=== PATIENT | male | born 1955 | race Caucasian/White ===

== ENCOUNTER 2019-08-24 12:30 | Outpatient (RCR) | payer OTHER, SELFPAY ==
[2019-08-24 13:14] LABS: Troponin I < 0.012 ng/mL (0.000-0.034)
== END 2019-11-22 23:59 | disposition home or self-care (01) ==
LOC: ANHLAB 12:30
PROVIDERS: PCP Family Medicine; Visit Provider Specialist
DX: I25.10 Atherosclerotic heart disease of native coronary artery without angina pectoris (principal); Z95.5 Presence of coronary angioplasty implant and graft
CPT/HCPCS: 36415; 84484

== ENCOUNTER 2019-09-04 13:11 | Emergency (ER) | payer OTHER, SELFPAY ==
--- NOTE | ~2019-09-04 | XR_ITS ---
EXAMINATION: XR chest 2V DATE: 09/04/2019 13:44 INDICATION: Central chest pain. Nausea. TECHNIQUE: PA and lateral views of the chest were obtained. COMPARISON: Chest radiograph and CT dated 05/12/18 FINDINGS: The lungs remain clear with no focal airspace opacities, pulmonary edema, pleural effusion or pneumot horax. The cardiomediastinal silhouette is normal. Moderate thoracic spondylosis. IMPRESSION: 1. No acute cardiopulmonary disease. Reviewed, dictated and finalized at location A.
[2019-09-04 13:15] VITALS: BP 165/84; PULSE 92; RESP 18; TEMP 36.8; O2SAT 97
[2019-09-04 13:19] VITALS: PULSE 92
[2019-09-04 13:20] VITALS: O2SAT 98
--- NOTE | 2019-09-04 13:20 | ECG_ITS ---
Measurements Intervals [place] Rate: 89 P: 48 SC: 132 QRS: 56 QRSD: 102 T: 45 QT: 363 QTc: 442 Interpretive Statements SINUS RHYTHM BASELINE ARTIFACT- I, II, III, AVL, AVF, V3 NORMAL ECG Electronically Signed On 09-04-2019 14:47:50 CDT by Ricco Eastman D.O.
[2019-09-04 13:32] LABS: Basophils Absolute Auto 0.1 K/mm3 (0.0-0.1); Basophils Percent Auto 0.3 % (0.2-1.2); Eosinophils Absolute Auto 0.1 K/mm3 (0-0.3); Eosinophils Percent Auto 0.5 % (0-4.4); Hemoglobin 14.9 g/dL (14.0-18.0); Immature Granulocyte Absolute 0.07 K/mm3 (0.00-0.031); Immature Granulocyte Percent A 0.5 % (0-0.5); Lymphocytes Absolute Auto 1.16 K/mm3 (0.9-3.2); Lymphocytes Percent Auto 7.7 % (18.3-44.2); Mean Corpuscular HGB Conc 33.1 g/dl (32-36); Mean Corpuscular Hemoglobin 29.7 pg (26-34); Mean Corpuscular Volume 89.6 fl (80-100); Mean Platelet Volume 11.2 fl (7.4-10.4); Monocytes Absolute Auto 0.7 K/mm3 (0.1-0.6); Monocytes Percent Auto 4.9 % (2.6-8.5); Neutrophils Percent Auto 86.1 % (45.5-73.1); Platelet Count Result 359 k/mm3 (150-375); Red Blood Count 5.02 M/mm3 (4.6-6.20); Red Cell Distribution Width 13.2 % (11.5-14.5); White Blood Count 15.1 K/mm3 (4.5-10.0)
[2019-09-04] MEDS: ASPIRIN 81 MG CHEWABLE TABLET 324 MG PO (13:32)
--- NOTE | 2019-09-04 13:33 | PC.NURSE ---
pt medicated with 3 baby aspirin at this time. Pt states I took 1 tablet prior to coming here.
--- NOTE | 2019-09-04 13:41 | ED.CHESTPAIN ---
HPI - Chest Pain General Chief Complaint: Chest Pain Stated Complaint: CP Time Seen by Provider: 09/04/19 13:34 History of Present Illness HPI narrative: 64 yo male w/ h/o multiple FL presents to the ED by private vehicle for chest pain. Started around 0830. Substernal. No radiation. continuous. Slightly improved from onset. Associated with nausea and diaphoresis. No SOB, dizziness, weakness. The pain reminds him of one of his heart attacks, although he thinks that it may be an ulcer. Related Data Home Medications Medication Instructions Recorded Confirmed aspirin 81 mg tablet,delayed 81 mg PO DAILY 06/18/19 release cetirizine 10 mg tablet 10 mg PO DAILY PRN tablet 06/18/19 esomeprazole magnesium 20 mg 20 mg PO DAILY 06/18/19 capsule,delayed release ticagrelor 60 mg tablet 60 mg PO Q12H 06/18/19 Allergies Allergy/AdvReac Type Severity Reaction Status Date / Time Penicillins Allergy Unknown Anaphylaxis Verified 07/23/19 15:09 Review of Systems Review of Systems: All systems reviewed & are unremarkable except as noted in HPI and below Constitutional: Constitutional: Denies fever(s) Cardiovascular: Cardiovascular: Reports chest pain Respiratory: Respiratory: Denies dyspnea Gastrointestinal: Gastrointestinal: Reports nausea and Denies vomiting Musculoskeletal: Musculoskeletal: Denies back pain Neurologic: Denies numbness and Denies weakness [facility] Past Medical History Medical History (Updated 09/04/19 @ 17:59 by Eduardo Santillan MD) CAD in [place] artery Gastritis/duodenitis Myocardial infarct Prediabetes Family History Family History Mother Patient's mother is in good health Father Family history of congestive heart failure, Onset Age: 73 Patient's father is Family history of cardiovascular disease Family history of coronary artery disease Family history of heart disease in male family member before age 55 Social History Social History Smoking status: Former smoker Smoking end date: 03/04/13 Alcohol intake: current Exam Const: General: healthy appearing, no acute distress and alert Orientation/consciousness: patient oriented x3 HENMT: Head: normal to inspection Neck: Neck: normal visual inspection and no lymphadenopathy Chest: Chest palpation & inspection: no tenderness Resp: Effort & Inspection: normal respiratory effort Auscultation: clear to auscultation bilaterally, no rales, no rhonchi and no wheezes Cardio: Jugular venous distension: no JVD Rate: regular rate Rhythm: regular rhythm Heart sounds: no murmurs GI: GI Palp: Yes Soft to palpation and No Tenderness to palpation present (GI) Other: nontender Skin: General skin exam: normal color Neuro: General: patient oriented x3 and moves all extremities Speech: normal speech Extrem: General: no edema Psych: Appearance: well kempt Affect: normal affect Course Vital Signs Vital signs: Vital Signs Temperature 36.8 C 09/04/19 13:15 Pulse Rate 92 09/04/19 13:15 Respiratory Rate 18 09/04/19 13:15 Blood Pressure 165/84 H 09/04/19 13:15 Pulse Oximetry 97 09/04/19 13:15 Temperature 36.8 C 09/04/19 13:15 Pulse Rate 89 09/04/19 17:03 Respiratory Rate 19 09/04/19 17:03 Blood Pressure 126/61 09/04/19 17:03 Pulse Oximetry 100 09/04/19 17:03 MDM - Chest Pain MDM Narrative Medical decision making narrative: His pain is atypical. Seems more GI. Epigastric tenderness. EKG does not show any changes of acute ischemia. Troponin negative x2. Medical Records Data Attestation: I reviewed the patient's medical records. Lab Data Attestation: I reviewed the patient's lab results. Result diagrams: 09/04/19 13:24 09/04/19 13:24 Labs: Lab Results 09/04/19 09/04/19 09/04/19 Range/Units 13:24 13:24 13:24 WBC 15.1 H
[2019-09-04 13:42] LABS: Blood Urea Nitrogen 10 mg/dL (9-20); Calcium 9.5 mg/dL (8.4-10.2); Carbon Dioxide 27 mmol/L (22-30); Chloride 103 mmol/L (98-107); Estimated Glomerular Filt Rate > 60; Glucose 149 mg/dL (75-110); Potassium 3.9 mmol/L (3.4-5.0); Sodium 140 mmol/L (137-145)
[2019-09-04 13:45] LABS: Prothrombin Time 12.5 Seconds (11.1-14.7)
[2019-09-04 13:46] LABS: Partial Thromboplastin Time 33.7 SECONDS (22.3-36.8)
[2019-09-04 13:54] LABS: Troponin I < 0.012 ng/mL (0.000-0.034)
[2019-09-04 14:17] VITALS: BP 133/70; PULSE 92; RESP 16; O2SAT 97
[2019-09-04] MEDS: PANTOPRAZOLE SODIUM IV 40 MG VIAL IV PUSH (14:24)
[2019-09-04] MEDS: ONDANSETRON INJ 4 MG/2 ML VIAL IV PUSH (14:24)
[2019-09-04 16:38] VITALS: BP 119/62; PULSE 96; RESP 18; O2SAT 96
[2019-09-04 16:47] LABS: Troponin I < 0.012 ng/mL (0.000-0.034)
[2019-09-04 17:03] VITALS: BP 126/61; PULSE 89; RESP 19; O2SAT 100
== END 2019-09-04 17:09 | disposition home or self-care (01) ==
PROVIDERS: Emergency Provider Emergency Medicine; PCP Family Medicine
DX: R07.2 Precordial pain (principal); I25.10 Atherosclerotic heart disease of native coronary artery without angina pectoris; I25.2 Old myocardial infarction; R73.03 Prediabetes; Z87.891 Personal history of nicotine dependence
CPT/HCPCS: 36415; 71046; 80048; 84484; 85025; 85610; 85730; 93005; 96374; 96375; 99284; A9270; C9113; J2405

== ENCOUNTER 2020-05-12 13:53 | Outpatient (CLI) | payer OTHER, SELFPAY | END 2020-05-12 13:54 | disposition home or self-care (01) | LOC: ANHCOVIDVC 13:53 | PROVIDERS: PCP Family Medicine | DX: Z23 Encounter for immunization (principal) | CPT/HCPCS: 0001A; 91300 ==

== ENCOUNTER 2020-06-02 13:59 | Outpatient (CLI) | payer OTHER, SELFPAY | END 2020-06-02 14:00 | disposition home or self-care (01) | LOC: ANHCOVIDVC 13:59 | PROVIDERS: PCP Family Medicine | DX: Z23 Encounter for immunization (principal) | CPT/HCPCS: 0002A; 91300 ==

== ENCOUNTER 2022-10-15 12:48 | Outpatient (CLI) | payer MEDICARE, OTHER, SELFPAY ==
[2022-10-15 14:01] LABS: Troponin I < 0.012 ng/mL (0.000-0.034)
== END 2022-10-15 12:49 | disposition home or self-care (01) ==
LOC: ANHGOSHLAB 12:51
PROVIDERS: PCP Family Medicine; Visit Provider Family Medicine
DX: I25.10 Atherosclerotic heart disease of native coronary artery without angina pectoris (principal); I25.83 Coronary atherosclerosis due to lipid rich plaque
CPT/HCPCS: 36415; 84484

== ENCOUNTER 2022-11-06 09:18 | Inpatient (IN) | payer MEDICARE, OTHER, SELFPAY ==
--- NOTE | ~2022-11-06 | CT_ITS ---
EXAMINATION: CT abdomen pelvis w con DATE: 11/06/2022 12:12 INDICATION: Low abdominal pain. TECHNIQUE: Computed tomography (CT) of the abdomen and pelvis was performed with 100 mL Omnipaque 350 intravenous contrast. Automated exposure control and iterative reconstruction technique were employe d. The dose-length product was 915.48 mGy-cm. COMPARISON: CT abdomen and pelvis 02/18/2014 FINDINGS: The visualized portions of the lung bases demonstrate mild atelectasis. There is mild bronc hiectasis bilaterally. No pleural effusion. The heart size is normal. There are coronary artery calci fications. No pericardial effusion. There are cysts in the liver measuring up to 5 mm. There are gall stones in the gallbladder, and shows normal size. There are low-attenuation lesions in the spleen kalyani suring up to 6 mm, likely granulomatous disease. The pancreas and right adrenal gland are normal. The re is a 6 mm mass of fat in left adrenal gland, consistent with a myelolipoma. There are cysts in the kidneys measuring up to 12 mm on the left. There is a parenchymal calcification in left kidney. Ther e is calcified atherosclerosis of the aorta and many of the other arteries. There is a 3.5 cm fusifor m aneurysm of infrarenal aorta. The prostate is mildly enlarged. There are scattered diverticula in t he colon. There is fat stranding around the sigmoid colon, consistent with diverticulitis. The append iceal diameter is 10 mm, increased from 5 mm on 02/18/14. The appendix is fluid-filled. No adjacent f at stranding. There is a left inguinal hernia containing fat. There are no pathologically enlarged ly mph nodes. There is severe thoracic and lumbar spondylosis. There is mild chronic anterior wedging of multiple thoracic vertebral bodies. IMPRESSION: 1. Acute sigmoid diverticulitis. No perforation or abscess. 2. Appendiceal diameter of 10 mm, increased from 5 mm on 02/18/14, which is indeterminate for acute a ppendicitis. 3. 3.5 cm fusiform aneurysm of infrarenal aorta. Reviewed, dictated and finalized at location A. IMPRESSION: 1. Acute sigmoid diverticulitis. No perforation or abscess. 2. Appendiceal diameter of 10 mm, increased from 5 mm on 02/18/14, which is ind eterminate for acute appendicitis. 3. 3.5 cm fusiform aneurysm of infrarenal aorta.
[2022-11-06 09:49] VITALS: BP 166/82; PULSE 90; RESP 16; O2SAT 93
[2022-11-06 10:43] LABS: Basophils Percent Auto 0.3 % (0.2-1.2); Eosinophils Absolute Auto 0.2 K/mm3 (0-0.3); Eosinophils Percent Auto 1.3 % (0-4.4); Hematocrit 46.7 % (42.0-52.0); Hemoglobin 15.7 g/dL (14.0-18.0); Immature Granulocyte Absolute 0.08 K/mm3 (0.00-0.031); Immature Granulocyte Percent A 0.7 % (0-0.5); Lymphocytes Absolute Auto 1.38 K/mm3 (0.9-3.2); Lymphocytes Percent Auto 11.9 % (18.3-44.2); Mean Corpuscular HGB Conc 33.6 g/dl (32-36); Mean Corpuscular Hemoglobin 31.3 pg (26-34); Mean Corpuscular Volume 93.2 fl (80-100); Mean Platelet Volume 11.7 fl (7.4-10.4); Monocytes Absolute Auto 0.6 K/mm3 (0.1-0.6); Monocytes Percent Auto 4.8 % (2.6-8.5); Neutrophils Absolute Auto 9.4 K/mm3 (1.3-6.7); Platelet Count Result 327 k/mm3 (150-375); Red Blood Count 5.01 M/mm3 (4.6-6.20); Red Cell Distribution Width 12.8 % (11.5-14.5); White Blood Count 11.6 K/mm3 (4.5-10.0)
[2022-11-06 10:54] LABS: Lactic Acid Reflex 1.7 mmol/L (0.7-2.0)
[2022-11-06 10:55] LABS: Alanine Aminotransferase 21 U/L (6-50); Albumin Level 4.5 g/dL (3.5-5.1); Alkaline Phosphatase 93 U/L (38-126); Anion Gap 8 mmol/L (8-16); Aspartate Amino Transferase 27 U/L (17-59); Blood Urea Nitrogen 13 mg/dL (9-20); Calcium 9.6 mg/dL (8.4-10.2); Carbon Dioxide 27 mmol/L (22-30); Chloride 105 mmol/L (98-107); Estimated CRCL calculation 94 ml/min; Estimated Glomerular Filt Rate > 60; Glucose 154 mg/dL (65-110); Lipase 122 U/L (23-300); Potassium 3.9 mmol/L (3.4-5.0); Sodium 140 mmol/L (137-145)
[2022-11-06 11:03] LABS: Appearance Urine Cloudy (Clear); Bacteria Urine None Seen /hpf; Bilirubin Urine 1+ (Negative); Blood Urine Negative (Negative); Calcium Oxalate Crystals Urine Present /hpf; Color Urine Dark Yellow (Yellow); Glucose Urine UA Negative (Negative); Ketones Urine Trace mg/dL (Negative); Leukocyte Esterase Ur Negative LEU/UL (Negative); Mucus Urine Present /lpf; Nitrate Urine Negative (Negative); Protein Urine 1+ mg/dL (Negative); Specific Grav Ur 1.026 (1.001-1.035); Squamous Epithelial Cell Urine None seen /hpf (Few); WBC Urine 0-5 /hpf; pH Urine 5.5 (5.0-9.0)
[2022-11-06 11:13] LABS: Add Urine Microscopic? YES
--- NOTE | 2022-11-06 12:03 | ED.GENADULT ---
HPI - General Adult General Chief complaint: Abdominal Pain Stated complaint: lower abdominal pain since Saturday Time Seen by Provider: 11/06/22 11:00 History of Present Illness HPI narrative: Keanu Lockwood is a 67 y/o male who presents with reports of lower abdominal pain that started 3 days ago. He reports feeling nauseated but has not vomited. He had a normal BM yesterday and reports having diarrhea today. He also states he had a fever yesterday. Denies any changes with urination. He reports of decrease PO intake and reports moving around makes his pain worse. Related Data Home Medications Medication Instructions Recorded Confirmed rivaroxaban 2.5 mg tablet (Xarelto) 2.5 mg PO Q12H 11/06/22 11/06/22 sucralfate 1 gram tablet (Carafate) 1 g PO TID PRN abdominal pain 11/06/22 11/06/22 Allergies Allergy/AdvReac Type Severity Reaction Status Date / Time Penicillins Allergy Unknown Anaphylaxis Verified 11/06/22 09:47 Review of Systems Review of Systems: CONSTITUTIONAL: Denies fever, chills, or sweats. EYES: Denies visual changes, redness, or discharge. ENT: Denies rhinorrhea, congestion, sore throat, or otalgia. CARDIOVASCULAR: Denies chest pain, palpitations, or edema. RESPIRATORY: Denies cough or dyspnea. GASTROINTESTINAL: Reports abdominal pain and nausea denies vomiting, Reports diarrhea that started today. GENITOURINARY: Denies dysuria or hematuria. SKIN: Denies rash or itching. MUSCULOSKELETAL: Denies back pain, joint pain, or myalgia. NEUROLOGIC: Denies headache, numbness, dizziness, or weakness. PSYCHIATRIC: Denies anxiety or depression. [facility] Past Medical History Medical History Aneurysm of infrarenal abdominal aorta 3.5 cm fusiform aneurysm noted on CT on 11/06/2022. Benign prostatic hyperplasia Coronary artery disease Gastritis/duodenitis Kidney stones Myocardial infarct Obesity (BMI 30.0-34.9) Prediabetes A1c was 5.4% in August 2022. Severe obstructive sleep apnea Surgical History Surgical History History of arthroscopy of right knee History of cardiac catheterization History of coronary artery stent placement Family History Family History Mother Patient's mother is in good health Father Family history of congestive heart failure, Onset Age: 73 Patient's father is Family history of cardiovascular disease Family history of coronary artery disease Family history of heart disease in male family member before age 55 Social History Social History Social History: Surrogate medical decision maker: Altagracia Lockwood, spouse. Code status: Full code. Smoking status: Former smoker Alcohol intake: current Alcohol use details: Social alcohol use in moderation. Substance use: never Lack of Transportation: No Lack of Food: Never True Current Housing: I Have Housing Concerned About Future Housing: No Difficulty Paying Gas/Electric Bills: No Difficulty Paying for Meds: No Currently Unemployed: No Education: Decline to Answer Difficulty w/ Childcare or Family Care: No Additional living arrangements comments: Lives with spouse in [place]. Additional occupation/education comments: Chiropractor. Spiritual care concerns: No Exam Narrative: GENERAL: Well-appearing, well-nourished, and in no acute distress. HEAD: Normocephalic, atraumatic. EYES: PERRLA and EOMI. ENT: Nares clear, no rhinorrhea or epistaxis. Mucous membranes moist. Oropharynx without tonsillar hypertrophy exudate or other lesions. NECK: Supple. No adenopathy or masses. No carotid bruits or JVD CHEST: Clear to auscultation. No respiratory distress. No wheezes rales or rhonchi HEART: Regular rate and rhythm. No murmur heard. Normal peripheral pulses. ABDOMEN: appear
--- NOTE | 2022-11-06 14:38 | PM.IMHP ---
H&P: HPI History of Present Illness Date/Time: 11/06/22 14:15 Chief Complaint: Abdominal pain. Narrative: This is a pleasant 67-year-old male with history of coronary artery disease with history of 6 stents on chronic anticoagulation and gastritis who presented to the emergency department via private vehicle from home for evaluation of abdominal pain. The patient provides the following history. He reports a gradual onset of mid to lower abdominal pain over the past 3 days describes as a severe ache however is occasional sharp and shooting in nature. His appetite has been poor and he reports nausea but has not had any episodes of vomiting. He had a loose bowel movement this morning and some pain with that though he has not noticed any blood or mucus in stool. Last evening he developed a fever for which he took ibuprofen with some benefit. Due to ongoing pain he decided to come in today for evaluation. He was afebrile on arrival with stable blood pressures. Labs were significant for a WBC count of 11.6, lactic acid 1.7, and glucose of 154. CT of the abdomen and pelvis showed acute sigmoid diverticulitis and and appendiceal diameter of 10 mm which is indeterminate for acute appendicitis. He is being admitted in this setting for supportive care and IV antibiotics. He has no prior history of diverticulitis. Review of Systems Review of Systems: Twelve systems were reviewed. He developed a fever yesterday as above. No cold or flu symptoms. No chest pain or shortness of breath. He has not noticed any blood or mucus in the stool. No dysuria. Except as documented, all other systems were reviewed and are negative. [facility] Past Medical History Medical History (Updated 11/06/22 @ 14:57 by Anali Torres PA-C) Aneurysm of infrarenal abdominal aorta 3.5 cm fusiform aneurysm noted on CT on 11/06/2022. Benign prostatic hyperplasia Coronary artery disease Gastritis/duodenitis Kidney stones Myocardial infarct Obesity (BMI 30.0-34.9) Prediabetes A1c was 5.4% in August 2022. Severe obstructive sleep apnea Surgical History Surgical History (Updated 11/06/22 @ 14:47 by Anali Torres PA-C) History of arthroscopy of right knee History of cardiac catheterization History of coronary artery stent placement Family History Family History Mother Patient's mother is in good health Father Family history of congestive heart failure, Onset Age: 73 Patient's father is Family history of cardiovascular disease Family history of coronary artery disease Family history of heart disease in male family member before age 55 Social History Social History (Updated 11/06/22 @ 14:48 by Anali Torres PA-C) Social History: Surrogate medical decision maker: Altagracia Lockwood, spouse. Code status: Full code. Smoking status: Former smoker Smoking end date: 03/04/13 Alcohol intake: current Alcohol use details: Social alcohol use in moderation. Additional living arrangements comments: Lives with spouse in [place]. Additional occupation/education comments: Chiropractor. Meds Home Medications and Allergies Home Medications Medication Instructions Recorded Confirmed Type nitroglycerin 0.4 mg sublingual 0.4 mg sublingual Q5M PRN chest 07/12/20 08/23/22 Rx tablet pain #25 tabs triamcinolone acetonide 0.1 % 1 applic topical QID #80 grams 03/09/21 08/23/22 Rx topical cream sucralfate 1 gram tablet (Carafate) 1 g PO TID abdominal pain #270 tabs 04/27/21 08/23/22 Rx fluticasone propionate 50 2 spray intranasal DAILY #16 grams 07/10/21 08/23/22 Rx mcg/actuation nasal spray,suspension (Flonase Allergy Relief) esomeprazole magnesium 40 mg 40 mg PO DAILY #90 caps 04/11/22 08/23/22 Rx capsule,delayed release (Nexium) atorvastatin 20 mg tablet 20 mg PO .2xweekly #30 tabs 04/13/22 08/23/22 Rx rivaroxaban 2.5 mg tablet (Xarelto) 2.5 mg PO BID #180 tabs 0
[2022-11-06] MEDS: MORPHINE SULFATE (*CRX) 4 MG/ML INJ IV PUSH ×2 (14:53)
[2022-11-06] MEDS: FAMOTIDINE 20 MG/2 ML VIAL IV PUSH (14:53)
[2022-11-06] MEDS: SODIUM CHLORIDE 0.9% IV 1,000 ML 999 ML IV CONT (14:54)
[2022-11-06] MEDS: metroNIDAZOLE 500 MG/ISO 100ML 500 MG/100 ML BAG 100 MG IVPB ×2 (14:54→20:41)
[2022-11-06 15:44] VITALS: BP 136/83; PULSE 98; RESP 16; O2SAT 97
--- NOTE | 2022-11-06 15:56 | PM.CNGS ---
Assessment and Plan Assessment and plan (1) Sigmoid diverticulitis: Code(s): K57.32 - Diverticulitis of large intestine without perforation or abscess without bleeding Status: Acute Assessment and Plan: CT showed evidence of acute sigmoid diverticulitis. No perforation or abscess. This is his first episode of diverticulitis. We would recommend continuing medical management with IV antibiotics, bowel rest, IV fluids, and analgesics as needed. Continue to trend labs and monitor with serial abdominal exams. (2) Abnormal CT of the abdomen: Code(s): R93.5 - Abnormal findings on diagnostic imaging of other abdominal regions, including retroperitoneum Status: Acute Assessment and Plan: CT showed an appendix measuring 10 mm. There is no inflammatory stranding around the appendix and no evidence of perforation. Considering he has been having abdominal pain for 3 days, you would expect more inflammation around the appendix if this were appendicitis. The CT findings of the appendix are most likely incidental, and it is unlikely that he would have acute diverticulitis and appendicitis simultaneously. We would recommend to continue treating with IV antibiotics for the sigmoid diverticulitis, which also cover for appendicitis. No plans for surgical intervention at this time. Will continue to monitor and could consider repeat imaging if he is not progressing as expected in the next few days. (3) Aneurysm of infrarenal abdominal aorta: Code(s): I71.43 - Infrarenal abdominal aortic aneurysm, without rupture Status: Acute (4) Coronary artery disease: Code(s): I25.10 - Atherosclerotic heart disease of [place] coronary artery without angina pectoris Status: Acute (5) Anticoagulant long-term use: Code(s): Z79.01 - porcelain buildup assistant (current) use of anticoagulants Status: Acute Assessment and Plan: Recommend holding Xarelto for now. Okay to use Lovenox for now. (6) Severe obstructive sleep apnea: Code(s): G47.33 - Obstructive sleep apnea (adult) (pediatric) Status: Acute Plan I have discussed the patient's case and plan of care with Dr. Nicole. Thank you for allowing us to see the patient in consultation and we will continue to follow along with you. History of Present Illness Consult details Consult date: 11/06/22 Reason for consult: other (Possible acute appendicitis) Requesting physician: Bell Ruiz APRN Narrative: This is a 67-year-old man with a history of coronary artery disease with a history of 6 stents on Xarelto, who presented to the ER today with complaints of lower abdominal pain for 3 days. He reports initially noticing infraumbilical pain 3 days ago. His pain migrated to his bilateral lower abdomen the following day. He reports his pain was most localized in the suprapubic area. This pain gradually became more severe to the point that this morning he was unable to stand straight up when getting out of the shower. He reports associated nausea and poor appetite, but no vomiting. Bowels have been normal with a bowel movement this morning. He developed a fever last night and subsequently took ibuprofen. With his worsening pain, he decided to come into the ER for evaluation. Labs [place] [id number] scan of abdomen and pelvis showed acute sigmoid diverticulitis without perforation or abscess, and also noted an appendiceal diameter of 10 mm that is larger than a comparison CT from 9 years ago. No evidence of perforation. He has been started on IV ciprofloxacin and metronidazole. He is being admitted to the hospitalist service. Our service was consulted for CT findings of a dilated appendix indeterminate for acute appendicitis. He is now seen in the ER. He reports over the last 3 hours, his abdominal pain has become more severe and he feels much more bloated. He feels his abdomen has become distended over the past few hours. Daniel
[2022-11-06 16:03] VITALS: BP 136/83; PULSE 98; RESP 16; O2SAT 98
[2022-11-06 16:10] VITALS: BMI 31.7
--- NOTE | 2022-11-06 16:18 | ADMGEN ---
This patient, Keanu Lockwood, was admitted to 3 [facility] Surg Room 304-01. Patient/family oriented to hospital policies and general routines including ID bracelet, bed and alarms, visiting hours, pain management, procedures, bathroom and other care routines, personal items, smoking policy, room service/diet, and visiting hours. Information on how to activate the Rapid Response Team has been discussed. Patient/Family are encouraged to report perceived risks to care and to ask questions if they do not understand what they are told or what they should do.
[2022-11-06] MEDS: LACTATED RINGERS 1,000 ML 125 ML IV CONT ×2 (16:31→20:42)
[2022-11-06] MEDS: AZTREONAM 2 GM in SODIUM CHLORIDE 0.9% IV 100 ML 200 ML IVPB (16:33)
[2022-11-06 20:00] VITALS: PULSE 96
[2022-11-06 20:41] VITALS: TEMP 38.4
[2022-11-06] MEDS: ACETAMINOPHEN 325 MG TABLET 650 MG PO (20:41)
[2022-11-06 22:00] VITALS: BP 142/63; PULSE 104; RESP 14; TEMP 38.4; O2SAT 92
[2022-11-07] VITALS (9 sets, daily range): BP systolic 147–153; BP diastolic 65–69; PULSE 80–98; RESP 13–16; TEMP 37.3–37.5; O2SAT 94–99
[2022-11-07] MEDS: AZTREONAM 2 GM in SODIUM CHLORIDE 0.9% IV 100 ML 200 ML IVPB ×2 (00:45→08:51)
[2022-11-07] MEDS: MORPHINE SULFATE (*CRX) 2 MG/ML INJ 4 MG IV PUSH (01:25)
[2022-11-07] MEDS: metroNIDAZOLE 500 MG/ISO 100ML 500 MG/100 ML BAG 100 MG IVPB ×3 (05:48→22:05)
[2022-11-07 06:18] LABS: Basophils Percent Auto 0.2 % (0.2-1.2); Eosinophils Absolute Auto 0.1 K/mm3 (0-0.3); Eosinophils Percent Auto 0.8 % (0-4.4); Hematocrit 38.2 % (42.0-52.0); Hemoglobin 12.4 g/dL (14.0-18.0); Immature Granulocyte Absolute 0.05 K/mm3 (0.00-0.031); Immature Granulocyte Percent A 0.4 % (0-0.5); Lymphocytes Absolute Auto 1.85 K/mm3 (0.9-3.2); Lymphocytes Percent Auto 15.2 % (18.3-44.2); Mean Corpuscular HGB Conc 32.5 g/dl (32-36); Mean Corpuscular Hemoglobin 31.2 pg (26-34); Mean Platelet Volume 11.5 fl (7.4-10.4); Monocytes Absolute Auto 0.8 K/mm3 (0.1-0.6); Monocytes Percent Auto 6.9 % (2.6-8.5); Neutrophils Absolute Auto 9.3 K/mm3 (1.3-6.7); Neutrophils Percent Auto 76.5 % (45.5-73.1); Platelet Count Result 265 k/mm3 (150-375); Red Blood Count 3.98 M/mm3 (4.6-6.20); Red Cell Distribution Width 12.8 % (11.5-14.5); White Blood Count 12.2 K/mm3 (4.5-10.0)
[2022-11-07 06:31] LABS: Anion Gap 5 mmol/L (8-16); Blood Urea Nitrogen 10 mg/dL (9-20); Calcium 8.3 mg/dL (8.4-10.2); Carbon Dioxide 27 mmol/L (22-30); Chloride 106 mmol/L (98-107); Estimated CRCL calculation 108 ml/min; Estimated Glomerular Filt Rate > 60; Glucose 106 mg/dL (65-110); Magnesium 2.1 mg/dL (1.6-2.3); Potassium 3.8 mmol/L (3.4-5.0); Sodium 138 mmol/L (137-145)
[2022-11-07] MEDS: PANTOPRAZOLE SODIUM IV 40 MG VIAL IV PUSH (08:52)
--- NOTE | 2022-11-07 09:44 | PM.IMPN ---
Progress Note: A&P Assessment and Plan (1) Sigmoid diverticulitis: Code(s): K57.32 - Diverticulitis of large intestine without perforation or abscess without bleeding Status: Acute Assessment and Plan: Continue IV antibiotics, aztreonam and metronidazole Appreciate general surgery consultation Monitor closely for possible perforation Clear liquid diet (2) Coronary artery disease: Code(s): I25.10 - Atherosclerotic heart disease of [place] coronary artery without angina pectoris Status: Acute Assessment and Plan: Hold statin (3) Severe obstructive sleep apnea: Code(s): G47.33 - Obstructive sleep apnea (adult) (pediatric) Status: Acute (4) Gastritis/duodenitis: Code(s): K29.90 - Gastroduodenitis, unspecified, without bleeding Status: Acute (5) Aneurysm of infrarenal abdominal aorta: Code(s): I71.43 - Infrarenal abdominal aortic aneurysm, without rupture Status: Acute Plan DVT prophylaxis with SCDs, Xarelto on hold GI prophylaxis not indicated Code status full code Subjective Date/time seen: 11/07/22 09:44 Interval history: 67-year-old male with history of heart disease and multiple stents is presenting with abdominal pain and currently being treated for diverticulitis. No overnight events noted. No chest pain or shortness of breath. No nausea, vomiting or diarrhea. No fevers or chills. Patient is complaining of severe abdominal pain with movement, not much at rest. Review of Systems Review of Systems: 12 point review of systems was assessed and was negative except as noted in the HPI Exam Narrative: General: No acute distress, alert and oriented per baseline HEENT: Atraumatic, normocephalic, mucous membranes moist CV: Regular rate and rhythm, S1, S2 Lungs: Clear to auscultation bilaterally, no rales or crackles noted, no wheezes, good air entry Abdomen: Soft, mildly tender to palpation, nondistended, no peritoneal sign Extremities: Normal to inspection Skin: No rashes noted, no lesions or wounds seen Psych: Euthymic, normal affect Objective Data Vital Signs Vital Signs: Vital Signs - 24 hr 11/06/22 09:49 11/06/22 15:44 11/06/22 16:03 Temperature Pulse Rate 90 98 98 Respiratory Rate 16 16 16 Blood Pressure 166/82 H 136/83 136/83 Pulse Oximetry 93 97 98 Oxygen Delivery Room Air 11/06/22 18:50 11/06/22 20:41 11/06/22 22:00 Temperature 101.1 F H 101.1 F H Pulse Rate 104 H Respiratory Rate 14 Blood Pressure 142/63 H Pulse Oximetry 92 Oxygen Delivery Room Air 11/07/22 05:34 11/06/22 20:00 11/07/22 00:00 Temperature 99.5 F Pulse Rate 88 96 91 Respiratory Rate 13 Blood Pressure 153/67 H Pulse Oximetry 94 Oxygen Delivery 11/07/22 04:00 Temperature Pulse Rate 81 Respiratory Rate Blood Pressure Pulse Oximetry Oxygen Delivery Intake/Output Intake/Output: Intake & Output 11/04/22 11/05/22 11/06/22 11/07/22 23:59 23:59 23:59 23:59 Intake Total 2300 100 Balance 2300 100 Meds/Results Medications: Active Medications Generic Name Dose Route Start Last Admin Trade Name Freq PRN Reason Stop Dose Admin Acetaminophen 650 mg 11/06/22 15:01 11/06/22 20:41 Acetaminophen 325 Mg Tablet PO 650 mg Q6H PRN Administration Mild Pain (1-3) or Fever Hydrocodone Bitart/Acetaminophen 1 tab 11/06/22 15:01 Hydrocodone/Acetaminophen (*Crx) 5-325 Mg Tablet PO Q6H PRN Pain Rated 4-6 Lactated Ringer's 1,000 mls @ 125 mls/hr 11/06/22 14:00 11/06/22 20:42 Lr - Lactated Ringers Iv IV CONT 125 mls/hr .Q8H JEAN CARLOS Administration Metronidazole 500 mg in 100 mls @ 100 mls/hr 11/06/22 22:00 11/07/22 05:48 Flagyl 500 Mg/Iso Soln 100 Ml IVPB 100 mls/hr Q8HR JEAN CARLOS Administration Aztreonam 2 gm/ Sodium 100 mls @ 200 mls/hr 11/06/22 16:00 11/07/22 08:51 Chloride IVPB 200 mls/hr Q8H JEAN CARLOS Administration
--- NOTE | 2022-11-07 12:12 | PM.PNGS ---
Progress Note: A&P Assessment and Plan (1) Sigmoid diverticulitis: Code(s): K57.32 - Diverticulitis of large intestine without perforation or abscess without bleeding Status: Acute Assessment and Plan: Continue IV antibiotics. He was febrile overnight and his WBC is up slightly to 12.2 this morning. Slight improvement in abdominal pain but he is still very tender on exam. Will keep NPO. Continue analgesics. Repeat labs tomorrow. (2) Abnormal CT of the abdomen: Code(s): R93.5 - Abnormal findings on diagnostic imaging of other abdominal regions, including retroperitoneum Status: Acute Assessment and Plan: Continue IV antibiotics and close monitoring. (3) Anticoagulant long-term use: Code(s): Z79.01 - emt intermediate (current) use of anticoagulants Status: Acute Assessment and Plan: Continue to hold Xarelto. Plan I have discussed the patient's case and plan of care with Dr. Nicole. Subjective Subjective Date/Time Seen: 11/07/22 12:12 Patient reports: still having pain, flatus, no bowel movement, nausea and fever (around 10 pm last night) Interval history: Patient seen this morning. He feels his abdominal pain may be slightly better than when he came into the ER, but is still constant and fairly severe. He is still unable to stand straight up when walking to the bathroom. He still reports feeling very tender across his entire abdomen. His abdominal pain is still all over but worse across his lower abdomen. No migration of pain. Some nausea overnight but no vomiting. Still feels bloated. WBC 12.2 this morning and he was febrile last night. Afebrile this morning but reports chills. Per nursing, the patient did take a dose of his Xarelto last night from his own medication bottle, but this has been held this morning and staff discussed protocols with home medications with the patient. His medications will be taken home by his . Review of Systems Review of Systems: ROS unchanged Exam Const: General: alert and uncomfortable (due to pain) Orientation/consciousness: patient oriented x3 Extrem: General: no edema Psych: Mental Status: mental status grossly normal Insight: Good insight present (Psych) Objective Data Vital Signs Vital Signs: Vital Signs - 24 hr 11/06/22 15:44 11/06/22 16:03 11/06/22 18:50 Temperature Pulse Rate 98 98 Respiratory Rate 16 16 Blood Pressure 136/83 136/83 Pulse Oximetry 97 98 Oxygen Delivery Room Air 11/06/22 20:41 11/06/22 22:00 11/07/22 05:34 Temperature 101.1 F H 101.1 F H 99.5 F Pulse Rate 104 H 88 Respiratory Rate 14 13 Blood Pressure 142/63 H 153/67 H Pulse Oximetry 92 94 Oxygen Delivery 11/06/22 20:00 11/07/22 00:00 11/07/22 04:00 Temperature Pulse Rate 96 91 81 Respiratory Rate Blood Pressure Pulse Oximetry Oxygen Delivery 11/07/22 09:44 11/07/22 08:00 Temperature Pulse Rate Respiratory Rate Blood Pressure Pulse Oximetry 95 98 Oxygen Delivery Room Air Room Air Intake/Output Intake/Output: Intake & Output 11/04/22 11/05/22 11/06/22 11/07/22 23:59 23:59 23:59 23:59 Intake Total 2300 100 Balance 2300 100 Meds/Results Medications: Active Medications Generic Name Dose Route Start Last Admin Trade Name Freq PRN Reason Stop Dose Admin Acetaminophen 650 mg 11/06/22 15:01 11/06/22 20:41 Acetaminophen 325 Mg Tablet PO 650 mg Q6H PRN Administration Mild Pain (1-3) or Fever Hydrocodone Bitart/Acetaminophen 1 tab 11/06/22 15:01 Hydrocodone/Acetaminophen (*Crx) 5-325 Mg Tablet PO Q6H PRN Pain Rated 4-6 Lactated Ringer's 1,000 mls @ 125 mls/hr 11/06/22 14:00 11/06/22 20:42 Lr - Lactated Ringers Iv IV CONT 125 mls/hr .Q8H JEAN CARLOS Administration Metronidazole 500 mg in 100 mls @ 100 mls/hr 11/06/22 22:00 11/07/22 05:48 Flagyl 500 Mg/Iso Soln 100 Ml IVPB 100 mls/hr Q8HR JEAN CARLOS Administration Az
[2022-11-07] MEDS: fentaNYL CITRATE INJ (*CRX) 100 MCG/2 ML VIAL 25 MCG IV PUSH (16:35)
[2022-11-07] MEDS: AZTREONAM 2 GM in SODIUM CHLORIDE 0.9% IV 100 ML IVPB ×2 (16:41→23:20)
[2022-11-07] MEDS: LACTATED RINGERS 1,000 ML 75 ML IV CONT (23:22)
[2022-11-08] VITALS (9 sets, daily range): BP systolic 116–166; BP diastolic 61–86; PULSE 70–93; RESP 13–14; TEMP 36.8–37.4; O2SAT 95–97
[2022-11-08] MEDS: metroNIDAZOLE 500 MG/ISO 100ML 500 MG/100 ML BAG 100 MG IVPB ×3 (05:21→21:59)
[2022-11-08 06:52] LABS: Anion Gap 8 mmol/L (8-16); Blood Urea Nitrogen 8 mg/dL (9-20); Calcium 8.4 mg/dL (8.4-10.2); Carbon Dioxide 27 mmol/L (22-30); Chloride 105 mmol/L (98-107); Estimated CRCL calculation 108 ml/min; Estimated Glomerular Filt Rate > 60; Glucose 102 mg/dL (65-110); Potassium 3.5 mmol/L (3.4-5.0); Sodium 140 mmol/L (137-145)
[2022-11-08 06:56] LABS: Hematocrit 39.5 % (42.0-52.0); Hemoglobin 12.8 g/dL (14.0-18.0); Mean Corpuscular HGB Conc 32.4 g/dl (32-36); Mean Corpuscular Volume 95.6 fl (80-100); Mean Platelet Volume 11.8 fl (7.4-10.4); Platelet Count Result 290 k/mm3 (150-375); Red Blood Count 4.13 M/mm3 (4.6-6.20); Red Cell Distribution Width 12.5 % (11.5-14.5); White Blood Count 10.2 K/mm3 (4.5-10.0)
[2022-11-08] MEDS: AZTREONAM 2 GM in SODIUM CHLORIDE 0.9% IV 100 ML IVPB ×2 (08:05→16:18)
--- NOTE | 2022-11-08 08:38 | PM.IMPN ---
Progress Note: A&P Assessment and Plan (1) Sigmoid diverticulitis: Code(s): K57.32 - Diverticulitis of large intestine without perforation or abscess without bleeding Status: Acute Assessment and Plan: Continue IV antibiotics, aztreonam and metronidazole Appreciate general surgery consultation Improving, ADAT (2) Coronary artery disease: Code(s): I25.10 - Atherosclerotic heart disease of [place] coronary artery without angina pectoris Status: Acute Assessment and Plan: Hold statin (3) Severe obstructive sleep apnea: Code(s): G47.33 - Obstructive sleep apnea (adult) (pediatric) Status: Acute (4) Gastritis/duodenitis: Code(s): K29.90 - Gastroduodenitis, unspecified, without bleeding Status: Acute (5) Aneurysm of infrarenal abdominal aorta: Code(s): I71.43 - Infrarenal abdominal aortic aneurysm, without rupture Status: Acute Plan DVT prophylaxis with SCDs, Xarelto on hold GI prophylaxis not indicated Code status full code Subjective Date/time seen: 11/08/22 08:38 Interval history: 67-year-old male with history of heart disease and multiple stents is presenting with abdominal pain and currently being treated for diverticulitis. No overnight events noted. No chest pain or shortness of breath. No nausea, vomiting or diarrhea. No fevers or chills. Patient feels a little better than yesterday. Review of Systems Review of Systems: 12 point review of systems was assessed and was negative except as noted in the HPI Exam Narrative: General: No acute distress, alert and oriented per baseline HEENT: Atraumatic, normocephalic, mucous membranes moist CV: Regular rate and rhythm, S1, S2 Lungs: Clear to auscultation bilaterally, no rales or crackles noted, no wheezes, good air entry Abdomen: Soft, mildly tender to palpation, non distended, less tender than yesterday Extremities: Normal to inspection Skin: No rashes noted, no lesions or wounds seen Psych: Euthymic, normal affect Objective Data Vital Signs Vital Signs: Vital Signs - 24 hr 11/07/22 09:44 11/07/22 14:00 11/07/22 12:00 Temperature 99.1 F Pulse Rate 90 91 Respiratory Rate 16 Blood Pressure 147/69 H Pulse Oximetry 95 99 Oxygen Delivery Room Air 11/07/22 16:00 11/07/22 21:32 11/08/22 00:00 Temperature 99.3 F Pulse Rate 80 93 93 Respiratory Rate 14 Blood Pressure 152/65 H Pulse Oximetry 95 Oxygen Delivery 11/08/22 04:00 11/08/22 05:28 11/08/22 08:00 Temperature 99.4 F Pulse Rate 70 90 78 Respiratory Rate 13 Blood Pressure 166/86 H Pulse Oximetry 95 Oxygen Delivery 11/08/22 08:00 Temperature Pulse Rate Respiratory Rate Blood Pressure Pulse Oximetry 95 Oxygen Delivery Room Air Intake/Output Intake/Output: Intake & Output 11/05/22 11/06/22 11/07/22 11/08/22 23:59 23:59 23:59 23:59 Intake Total 2300 1840 950 Output Total 1200 Balance 2300 1840 -250 Meds/Results Medications: Active Medications Generic Name Dose Route Start Last Admin Trade Name Freq PRN Reason Stop Dose Admin Acetaminophen 650 mg 11/06/22 15:01 11/06/22 20:41 Acetaminophen 325 Mg Tablet PO 650 mg Q6H PRN Administration Mild Pain (1-3) or Fever Hydrocodone Bitart/Acetaminophen 1 tab 11/06/22 15:01 Hydrocodone/Acetaminophen (*Crx) 5-325 Mg Tablet PO Q6H PRN Pain Rated 4-6 Fentanyl Citrate 25 mcg 11/07/22 15:04 11/07/22 16:35 Fentanyl Citrate Inj (*Crx) 100 Mcg/2 Ml Vial IV PUSH 25 mcg Q4H PRN Administration Pain Rated 7-10 Lactated Ringer's 1,000 mls @ 125 mls/hr 11/06/22 14:00 11/07/22 23:23 Lr - Lactated Ringers Iv IV CONT Not Given .Q8H JEAN CARLOS Metronidazole 500 mg in 100 mls @ 100 mls/hr 11/06/22 22:00 11/08/22 06:27 Flagyl 500 Mg/Iso Soln 100 Ml IVPB Infused Q8HR JEAN CARLOS Infusion Aztreonam 2 gm/ Sodium 100 mls @ 200 mls/hr 11/06
[2022-11-08] MEDS: PANTOPRAZOLE SODIUM IV 40 MG VIAL IV PUSH (09:20)
--- NOTE | 2022-11-08 11:32 | PM.PNGS ---
Progress Note: A&P Assessment and Plan (1) Sigmoid diverticulitis: Code(s): K57.32 - Diverticulitis of large intestine without perforation or abscess without bleeding Status: Acute Assessment and Plan: Advance to full liquids Continue IV antibiotics (2) Abnormal CT of the abdomen: Code(s): R93.5 - Abnormal findings on diagnostic imaging of other abdominal regions, including retroperitoneum Status: Acute Assessment and Plan: No worsening signs to suggest appendicitis in conjunction with diverticulitis. Antibiotics should help in either way. (3) Anticoagulant long-term use: Code(s): Z79.01 - jail (current) use of anticoagulants Status: Acute Assessment and Plan: Continue to hold Xarelto. Probably OK to resume tomorrow if no worsening signs. Subjective Subjective Date/Time Seen: 11/08/22 11:33 Interval history: Feeling better today. No fevers. Pain improved. Passing flatus and had BM. Tolerating clears. Exam GI: Inspection: non-distended and obesity GI Palp: Yes Soft to palpation, Yes Tenderness to palpation present (GI) (suprapubic), No Guarding due to palpation present (GI) and No Rebound tenderness present Auscultation: normal bowel sounds Objective Data Vital Signs Vital Signs: Vital Signs - 24 hr 11/07/22 14:00 11/07/22 12:00 11/07/22 16:00 Temperature 37.3 C Pulse Rate 90 91 80 Respiratory Rate 16 Blood Pressure 147/69 H Pulse Oximetry 99 Oxygen Delivery 11/07/22 21:32 11/08/22 00:00 11/08/22 04:00 Temperature 37.4 C Pulse Rate 93 93 70 Respiratory Rate 14 Blood Pressure 152/65 H Pulse Oximetry 95 Oxygen Delivery 11/08/22 05:28 11/08/22 08:00 11/08/22 08:00 Temperature 37.4 C Pulse Rate 90 78 Respiratory Rate 13 Blood Pressure 166/86 H Pulse Oximetry 95 95 Oxygen Delivery Room Air Intake/Output Intake/Output: Intake & Output 11/05/22 11/06/22 11/07/22 11/08/22 23:59 23:59 23:59 23:59 Intake Total 2300 1840 1272 Output Total 1200 Balance 2300 1840 72 Meds/Results Medications: Active Medications Generic Name Dose Route Start Last Admin Trade Name Freq PRN Reason Stop Dose Admin Acetaminophen 650 mg 11/06/22 15:01 11/06/22 20:41 Acetaminophen 325 Mg Tablet PO 650 mg Q6H PRN Administration Mild Pain (1-3) or Fever Hydrocodone Bitart/Acetaminophen 1 tab 11/06/22 15:01 Hydrocodone/Acetaminophen (*Crx) 5-325 Mg Tablet PO Q6H PRN Pain Rated 4-6 Fentanyl Citrate 25 mcg 11/07/22 15:04 11/07/22 16:35 Fentanyl Citrate Inj (*Crx) 100 Mcg/2 Ml Vial IV PUSH 25 mcg Q4H PRN Administration Pain Rated 7-10 Metronidazole 500 mg in 100 mls @ 100 mls/hr 11/06/22 22:00 11/08/22 06:27 Flagyl 500 Mg/Iso Soln 100 Ml IVPB Infused Q8HR JEAN CARLOS Infusion Aztreonam 2 gm/ Sodium 100 mls @ 200 mls/hr 11/06/22 16:00 11/08/22 10:16 Chloride IVPB Infused Q8H JEAN CARLOS Infusion Pantoprazole Sodium 40 mg 11/07/22 09:00 11/08/22 09:20 Pantoprazole Sodium Iv 40 Mg Vial IV PUSH 40 mg QAM JEAN CARLOS Administration Radiology Results: ITS Impressions Abdomen/Pelvis CT 11/06/22 12:15 IMPRESSION: 1. Acute sigmoid diverticulitis. No perforation or abscess. 2. Appendiceal diameter of 10 mm, increased from 5 mm on 02/18/14, which is indeterminate for acute appendicitis. 3. 3.5 cm fusiform aneurysm of infrarenal aorta. Labs Labs: Laboratory Results - last 24 hr 11/08/22 05:50 WBC 10.2 H RBC 4.13 L Hgb 12.8 L Hct 39.5 L MCV 95.6 MCH 31.0 MCHC 32.4 RDW 12.5 Plt Count 290 MPV 11.8 H Sodium 140 Potassium 3.5 Chloride 105 Carbon Dioxide 27 Anion Gap 8 BUN 8 L Creatinine 0.60 L Estim Creat Clear Calc 108 Estimated GFR > 60 Glucose 102 Calcium 8.4
[2022-11-08] MEDS: AZTREONAM 2 GM in SODIUM CHLORIDE 0.9% IV 100 ML 200 ML IVPB (23:51)
[2022-11-09] VITALS: PULSE 96
[2022-11-09 04:00] VITALS: PULSE 68
[2022-11-09 05:29] VITALS: BP 128/55; PULSE 69; RESP 13; TEMP 36.7; O2SAT 95
[2022-11-09 06:16] LABS: Hematocrit 38.5 % (42.0-52.0); Hemoglobin 12.7 g/dL (14.0-18.0); Mean Corpuscular Hemoglobin 31.1 pg (26-34); Mean Corpuscular Volume 94.4 fl (80-100); Mean Platelet Volume 11.6 fl (7.4-10.4); Platelet Count Result 306 k/mm3 (150-375); Red Blood Count 4.08 M/mm3 (4.6-6.20); Red Cell Distribution Width 12.5 % (11.5-14.5); White Blood Count 8.2 K/mm3 (4.5-10.0)
[2022-11-09] MEDS: metroNIDAZOLE 500 MG/ISO 100ML 500 MG/100 ML BAG 100 MG IVPB (06:16)
[2022-11-09 06:25] LABS: Anion Gap 9 mmol/L (8-16); Blood Urea Nitrogen 8 mg/dL (9-20); Calcium 8.5 mg/dL (8.4-10.2); Carbon Dioxide 26 mmol/L (22-30); Chloride 106 mmol/L (98-107); Estimated CRCL calculation 108 ml/min; Estimated Glomerular Filt Rate > 60; Glucose 98 mg/dL (65-110); Potassium 3.5 mmol/L (3.4-5.0); Sodium 141 mmol/L (137-145)
--- NOTE | 2022-11-09 08:43 | PM.PNGS ---
Progress Note: A&P Assessment and Plan (1) Sigmoid diverticulitis: Code(s): K57.32 - Diverticulitis of large intestine without perforation or abscess without bleeding Status: Acute Assessment and Plan: Advance to low fiber diet OK to discharge from surgical standpoint, no surgical follow up needed Will need to follow up with PCP and schedule Colonoscopy in 6-8 weeks Call office or return to ED for worsening symptoms. (2) Abnormal CT of the abdomen: Code(s): R93.5 - Abnormal findings on diagnostic imaging of other abdominal regions, including retroperitoneum Status: Acute Assessment and Plan: No worsening signs to suggest appendicitis in conjunction with diverticulitis. Antibiotics should help in either way. (3) Anticoagulant long-term use: Code(s): Z79.01 - [employer] (current) use of anticoagulants Status: Acute Assessment and Plan: OK to resume Xarelto Subjective Subjective Date/Time Seen: 11/09/22 08:43 Interval history: Pain improved. Tolerating full liquids. Exam GI: Inspection: non-distended and obesity GI Palp: Yes Soft to palpation, Yes Tenderness to palpation present (GI) (suprapubic), No Guarding due to palpation present (GI) and No Rebound tenderness present Auscultation: normal bowel sounds Objective Data Vital Signs Vital Signs: Vital Signs - 24 hr 11/08/22 12:00 11/08/22 14:00 11/08/22 16:00 Temperature 37.1 C Pulse Rate 78 77 80 Respiratory Rate 14 Blood Pressure 116/61 Pulse Oximetry 95 11/08/22 21:25 11/08/22 20:45 11/09/22 00:00 Temperature 36.8 C Pulse Rate 80 79 96 Respiratory Rate 14 Blood Pressure 144/61 H Pulse Oximetry 97 11/09/22 04:00 11/09/22 05:29 Temperature 36.7 C Pulse Rate 68 69 Respiratory Rate 13 Blood Pressure 128/55 L Pulse Oximetry 95 Intake/Output Intake/Output: Intake & Output 11/06/22 11/07/22 11/08/22 11/09/22 23:59 23:59 23:59 23:59 Intake Total 2300 1840 2256 850 Output Total 1200 300 Balance 2300 1840 1056 550 Meds/Results Medications: Active Medications Generic Name Dose Route Start Last Admin Trade Name Freq PRN Reason Stop Dose Admin Acetaminophen 650 mg 11/06/22 15:01 11/06/22 20:41 Acetaminophen 325 Mg Tablet PO 650 mg Q6H PRN Administration Mild Pain (1-3) or Fever Hydrocodone Bitart/Acetaminophen 1 tab 11/06/22 15:01 Hydrocodone/Acetaminophen (*Crx) 5-325 Mg Tablet PO Q6H PRN Pain Rated 4-6 Dicyclomine HCl 20 mg 11/08/22 11:32 Dicyclomine Hcl 10 Mg Capsule PO QID PRN Abdominal Cramping Fentanyl Citrate 25 mcg 11/07/22 15:04 11/07/22 16:35 Fentanyl Citrate Inj (*Crx) 100 Mcg/2 Ml Vial IV PUSH 25 mcg Q4H PRN Administration Pain Rated 7-10 Metronidazole 500 mg in 100 mls @ 100 mls/hr 11/06/22 22:00 11/09/22 06:16 Flagyl 500 Mg/Iso Soln 100 Ml IVPB 100 mls/hr Q8HR JEAN CARLOS Administration Aztreonam 2 gm/ Sodium 100 mls @ 200 mls/hr 11/06/22 16:00 11/09/22 00:40 Chloride IVPB Infused Q8H JEAN CARLOS Infusion Pantoprazole Sodium 40 mg 11/07/22 09:00 11/08/22 09:20 Pantoprazole Sodium Iv 40 Mg Vial IV PUSH 40 mg QAM JEAN CARLOS Administration Radiology Results: ITS Impressions Abdomen/Pelvis CT 11/06/22 12:15 IMPRESSION: 1. Acute sigmoid diverticulitis. No perforation or abscess. 2. Appendiceal diameter of 10 mm, increased from 5 mm on 02/18/14, which is indeterminate for acute appendicitis. 3. 3.5 cm fusiform aneurysm of infrarenal aorta. Labs Labs: Laboratory Results - last 24 hr 11/09/22 05:26 WBC 8.2 RBC 4.08 L Hgb 12.7 L Hct 38.5 L MCV 94.4 MCH 31.1 MCHC 33.0 RDW 12.5 Plt Count 306 MPV 11.6 H Sodium 141 Potassium 3.5 Chloride 106 Carbon Dioxide 26 Anion Gap 9 BUN 8 L Creatinine 0.60 L Estim Creat Clear Calc 108 Estimated GFR > 60 Glucose 98 Calcium 8.5
[2022-11-09 08:45] VITALS: PULSE 85
[2022-11-09] MEDS: PANTOPRAZOLE SODIUM IV 40 MG VIAL IV PUSH (08:46)
[2022-11-09] MEDS: AZTREONAM 2 GM in SODIUM CHLORIDE 0.9% IV 100 ML 200 ML IVPB (08:46)
--- NOTE | 2022-11-09 11:02 | PM.DS ---
DS: Admitting Diagnosis Discharge Date 11/09/2022 Admitting Diagnosis Abdominal pain DS: Discharge Diagnosis Discharge Diagnosis (1) Sigmoid diverticulitis: Code(s): K57.32 - Diverticulitis of large intestine without perforation or abscess without bleeding Status: Acute Assessment and Plan: Continue IV antibiotics, aztreonam and metronidazole Appreciate general surgery consultation Improving, ADAT (2) Coronary artery disease: Code(s): I25.10 - Atherosclerotic heart disease of [place] coronary artery without angina pectoris Status: Acute Assessment and Plan: Hold statin (3) Severe obstructive sleep apnea: Code(s): G47.33 - Obstructive sleep apnea (adult) (pediatric) Status: Acute (4) Gastritis/duodenitis: Code(s): K29.90 - Gastroduodenitis, unspecified, without bleeding Status: Acute (5) Aneurysm of infrarenal abdominal aorta: Code(s): I71.43 - Infrarenal abdominal aortic aneurysm, without rupture Status: Acute Plan DVT prophylaxis with SCDs, Xarelto on hold GI prophylaxis not indicated Code status full code DS: Summary Hospital Course Hospital Course: 67-year-old male with history of heart disease and multiple stents is presenting with abdominal pain and currently being treated for diverticulitis. Continue IV antibiotics, aztreonam and metronidazole Appreciate general surgery consultation Improving, ADAT General surgery recommended low-fiber diet, discharge on Xarelto, antibiotics, colonoscopy in 6-8 weeks. Please see above and med rec for details. Patient was discharged on oral antibiotics of Bactrim and Flagyl. Time Spent with Patient Time attestation: Total time spent providing and/or coordinating discharge services: Exam Narrative: General: No acute distress, alert and oriented per baseline HEENT: Atraumatic, normocephalic, mucous membranes moist CV: Regular rate and rhythm, S1, S2 Lungs: Clear to auscultation bilaterally, no rales or crackles noted, no wheezes, good air entry Abdomen: Soft, mildly tender to palpation, non distended, less tender than yesterday Extremities: Normal to inspection Skin: No rashes noted, no lesions or wounds seen Psych: Euthymic, normal affect DS: Data Data Completed and Pending Labs on day of discharge: Labs from last 24 hours 11/09/22 05:26 WBC 8.2 RBC 4.08 L Hgb 12.7 L Hct 38.5 L MCV 94.4 MCH 31.1 MCHC 33.0 RDW 12.5 Plt Count 306 MPV 11.6 H Sodium 141 Potassium 3.5 Chloride 106 Carbon Dioxide 26 Anion Gap 9 BUN 8 L Creatinine 0.60 L Estim Creat Clear Calc 108 Estimated GFR > 60 Glucose 98 Calcium 8.5 Discharge Plan Discharge Attending physician on discharge: Erendira Justice Consulting providers: Shad Nicole Discharging Clinician: Erendira Justice Patient Disposition: Home, Self-Care Activity: as tolerated Diet: as tolerated and low fiber Patient Instructions: Antibiotic Form, Rivaroxaban (By mouth), Diverticulitis (DC) Stand Alone Forms: General Discharge Information Follow-up/Referrals: Shad Nicole, [Physician] - Other (Patient may call back as needed for any residual symptoms.) Discharge Medications: New metronidazole 500 mg tablet 500 mg PO Q8H 11 Days Qty: 33 0RF sulfamethoxazole-trimethoprim [Bactrim DS] 800-160 mg tablet 1 tablet PO Q12H 11 Days Qty: 22 0RF Continued sucralfate [Carafate] 1 gram tablet 1 g PO TID PRN (Reason: abdominal pain) Rx Instructions: pt states he last took it a few weeks ago Xarelto 2.5 mg tablet 2.5 mg PO Q12H esomeprazole magnesium [Nexium] 40 mg capsule,delayed release(DR/EC) 40 mg PO DAILY Qty: 90 1RF atorvastatin 20 mg tablet 20 mg PO .2xweekly Qty: 30 0RF Rx Instructions: takes on saturday + saturday at HS Other Ambulatory Orders: Basic Metabolic Panel (Routine) Timeframe: 1 W
== END 2022-11-09 11:49 | disposition home or self-care (01) | DRG 392 ==
LOC: ANHED 11:00 → ANH3MEDSUR 15:30
PROVIDERS: Nurse Practitioner Family; Physician Assistant; Preventive Medicine Aerospace Medicine; Surgery; Admitting Provider Hospitalist; Emergency Provider Nurse Practitioner Family; PCP Family Medicine; Visit Provider Student in an Organized Health Care Education/Training Program
DX: K57.32 Diverticulitis of large intestine without perforation or abscess without bleeding (principal); K29.90 Gastroduodenitis, unspecified, without bleeding; I71.43 Infrarenal abdominal aortic aneurysm, without rupture; I25.10 Atherosclerotic heart disease of native coronary artery without angina pectoris; N40.0 Benign prostatic hyperplasia without lower urinary tract symptoms; G47.33 Obstructive sleep apnea (adult) (pediatric); R73.03 Prediabetes; I25.2 Old myocardial infarction; Z95.5 Presence of coronary angioplasty implant and graft; Z87.442 Personal history of urinary calculi; Z79.01 Long term (current) use of anticoagulants
CPT/HCPCS: 36415; 74177; 80048; 80053; 81001; 83605; 83690; 83735; 85025; 85027; 99285; A9270; C9113; J0457; J1836; J2270; J3010; J7030; J7120; Q9967

== ENCOUNTER 2023-01-03 15:49 | Outpatient (CLI) | payer MEDICARE, OTHER, SELFPAY ==
[2023-01-03 16:08] LABS: Hematocrit 43.6 % (42.0-52.0); Hemoglobin 14.4 g/dL (14.0-18.0); Mean Corpuscular Hemoglobin 31.2 pg (26-34); Mean Corpuscular Volume 94.6 fl (80-100); Platelet Count Result 320 k/mm3 (150-375); Red Blood Count 4.61 M/mm3 (4.6-6.20); Red Cell Distribution Width 13.6 % (11.5-14.5); White Blood Count 7.2 K/mm3 (4.5-10.0)
[2023-01-03 16:29] LABS: CRP < 0.5 mg/dL (<1.0)
[2023-01-03 16:40] LABS: Erythrocyte Sedimentation Rate 18 mm/hr (0-20)
== END 2023-01-03 15:50 | disposition home or self-care (01) ==
PROVIDERS: PCP Family Medicine; Visit Provider Nurse Practitioner
DX: E55.9 Vitamin D deficiency, unspecified (principal); R10.2 Pelvic and perineal pain; K57.32 Diverticulitis of large intestine without perforation or abscess without bleeding
CPT/HCPCS: 36415; 85027; 85652; 86140

== ENCOUNTER 2023-11-26 12:16 | Outpatient (CLI) | payer MEDICARE, OTHER, SELFPAY ==
[2023-11-26 12:48] LABS: Alanine Aminotransferase 19 U/L (6-50); Albumin Level 4.3 g/dL (3.5-5.1); Alkaline Phosphatase 91 U/L (38-126); Anion Gap 8 mmol/L (4-12); Aspartate Amino Transferase 20 U/L (17-59); Bilirubin,Total 0.4 mg/dL (0.2-1.3); Blood Urea Nitrogen 12 mg/dL (9-20); Calcium 9.6 mg/dL (8.4-10.2); Carbon Dioxide 31 mmol/L (22-30); Chloride 102 mmol/L (98-107); Estimated Glomerular Filt Rate > 60; Glucose 102 mg/dL (65-110); Potassium 3.9 mmol/L (3.4-5.0); Sodium 141 mmol/L (137-145)
[2023-11-26 12:57] LABS: Troponin I < 0.012 ng/mL (0.000-0.034)
== END 2023-11-26 12:17 | disposition home or self-care (01) ==
PROVIDERS: PCP Family Medicine; Visit Provider Family Medicine
DX: I25.10 Atherosclerotic heart disease of native coronary artery without angina pectoris (principal); I25.83 Coronary atherosclerosis due to lipid rich plaque
CPT/HCPCS: 36415; 80053; 84484